=== PATIENT | male | born 1950 | race Caucasian/White ===

== ENCOUNTER 2022-09-11 05:15 | Inpatient (IN) | payer OTHER ==
[~2022-09-11] VITALS: Ht 180.3 cm; Wt 91.1 kg
[2022-09-11 06:21] LABS: Basophils # (auto) 0 10 ^3/uL (0-0.2); Basophils % (auto) 0.1 % (0.0-2.0); Eosinophils # (auto) 0 10 ^3/uL (0-0.8); Hematocrit 41.3 % (41.0-53.0); Hemoglobin 13.9 g/dL (13.5-17.5); Lymphocytes # (auto) 0.5 10 ^3/uL (0.4-5.4); Lymphocytes % (auto) 2.5 % (10.0-50.0); Mean Corpuscular Hemoglobin 30.9 pg (28.0-32.0); Mean Corpuscular Hgb Conc. 33.6 g/dL (32.0-36.0); Mean Corpuscular Volume 91.9 fL (80.0-100.0); Monocytes # (auto) 1.2 10 ^3/uL (0-1.3); Monocytes % (auto) 6.3 % (0.0-12.0); Neutrophils % (auto) 91.1 % (37.0-80.0); Nucleated Red Blood Cells % 0.1 %; Red Cell Distribution Width 14.4 % (11.8-14.3); White Blood Cell 18.7 10^3/uL (4.4-10.8)
[2022-09-11 06:33] LABS: INR 1.14 (0.9-1.15); Partial Thromboplastin Time 31.8 sec (24.6-33.4)
[2022-09-11 06:38] LABS: Albumin 3.2 g/dL (3.4-5.0); Anion Gap 7 (5-15); Blood Urea Nitrogen 25 mg/dL (7-18); Carbon Dioxide 24 mmol/L (21-32); Chloride 104 mmol/L (98-107); Glucose 190 mg/dL (74-106); Potassium 3.9 mmol/L (3.5-5.1); Sodium 135 mmol/L (136-145)
[2022-09-11 06:47] LABS: Alanine Aminotransferase 57 U/L (16-61); Alkaline Phosphatase 98 U/L (45-117); Aspartate Aminotransferase 171 U/L (15-37); BUN/Creatinine Ratio 20.8; Bilirubin, Total 1.2 mg/dL (0.2-1.0); GFR African American 77 mL/min; GFR Non-African American 63 mL/min; Total Protein 6.2 g/dL (6.4-8.2)
[2022-09-11 07:09] LABS: CRP High Sensitivity > 19 mg/dL (< 0.3)
[2022-09-11] MEDS ORDERED: VANCOMYCIN 1GM/250ML 250 ML IV ONE (07:30)
[2022-09-11] MEDS ORDERED: ACETAMINOPHEN 325 MG TAB PO PRN (09:45)
[2022-09-11] MEDS ORDERED: DEXTROSE (50%) 50ML SYRG IV PRN (09:45)
[2022-09-11] MEDS ORDERED: VANCOMYCIN PER PHARMACY 0 MG IV SCH (09:45)
[2022-09-11] MEDS ORDERED: MORPHINE SULFATE INJ 2 MG/ml SYRG IV PRN ×2 (09:45)
[2022-09-11] MEDS ORDERED: NITROGLYCERIN 0.4 MG SL TAB SL PRN (09:45)
[2022-09-11] MEDS: METOPROLOL SUCCINATE XL 50 MG TAB PO SCH (10:00)
[2022-09-11] MEDS: MAGNESIUM SULFATE 1GM/100ML 100 ML IV SCH ×2 (10:20→11:25)
[2022-09-11] MEDS: SODIUM CHLORIDE 0.9% 1,000 ML IV SCH ×2 (10:20→19:45)
[2022-09-11] MEDS: ENOXAPARIN SOD 40 MG/0.4 ML SYRINGE SC SCH (10:20)
[2022-09-11] MEDS: PIPERACILLIN-TAZOB 3.375GM 100 ML IV SCH ×2 (11:26→16:21)
[2022-09-11] MEDS: ACCU-CHEK COMFORT CURVE STRIP VI SCH ×3 (11:33→23:21)
[2022-09-11] MEDS: InsuLIN REG 1unit/0.01ml Soln (100units/ml) SC SCH ×3 (11:36→23:29)
[2022-09-11] MEDS: VANCOMYCIN 1GM/250ML 250 ML IV SCH (23:33)
[2022-09-12] MEDS: VANCOMYCIN 1GM/250ML 250 ML IV SCH ×2 (00:20→10:10)
[2022-09-12] MEDS: PIPERACILLIN-TAZOB 3.375GM 100 ML IV SCH ×5 (02:08→21:16)
[2022-09-12 04:56] VITALS: BP 105/56
[2022-09-12 05:00] VITALS: BP 105/56
[2022-09-12] MEDS ORDERED: HYDR-4902 PO (05:17)
[2022-09-12 06:11] LABS: Basophils # (auto) 0 10 ^3/uL (0-0.2); Basophils % (auto) 0.2 % (0.0-2.0); Eosinophils # (auto) 0.1 10 ^3/uL (0-0.8); Eosinophils % (auto) 0.6 % (0.0-7.0); Hematocrit 39.2 % (41.0-53.0); Hemoglobin 13.4 g/dL (13.5-17.5); Lymphocytes # (auto) 0.6 10 ^3/uL (0.4-5.4); Lymphocytes % (auto) 5.3 % (10.0-50.0); Mean Corpuscular Hemoglobin 30.9 pg (28.0-32.0); Mean Corpuscular Hgb Conc. 34.3 g/dL (32.0-36.0); Mean Corpuscular Volume 90.1 fL (80.0-100.0); Monocytes # (auto) 1.1 10 ^3/uL (0-1.3); Monocytes % (auto) 9.8 % (0.0-12.0); Neutrophils # (auto) 9.6 10 ^3/uL (1.6-8.6); Neutrophils % (auto) 84.1 % (37.0-80.0); Red Blood Cells 4.35 10^6/uL (4.5-5.90); Red Cell Distribution Width 13.9 % (11.8-14.3); White Blood Cell 11.4 10^3/uL (4.4-10.8)
[2022-09-12] MEDS: ACCU-CHEK COMFORT CURVE STRIP VI SCH ×4 (06:16→21:16)
[2022-09-12] MEDS: InsuLIN REG 1unit/0.01ml Soln (100units/ml) SC SCH ×4 (06:16→21:17)
[2022-09-12] MEDS: SODIUM CHLORIDE 0.9% 1,000 ML IV SCH ×2 (06:16→15:45)
[2022-09-12 09:02] LABS: Albumin 2.5 g/dL (3.4-5.0); Calcium 7.4 mg/dL (8.5-10.1)
[2022-09-12 09:06] LABS: BUN/Creatinine Ratio 15.4; Bilirubin, Total 0.7 mg/dL (0.2-1.0); Total Protein 6.2 g/dL (6.4-8.2)
[2022-09-12] MEDS: ENOXAPARIN SOD 40 MG/0.4 ML SYRINGE SC SCH (10:09)
[2022-09-12] MEDS: METOPROLOL SUCCINATE XL 50 MG TAB PO SCH (10:10)
[2022-09-12 13:00] VITALS: BP 123/70
[2022-09-12 17:00] VITALS: BP 111/60
[2022-09-12 22:00] VITALS: BP 108/65
[2022-09-13] MEDS: HYDROcodone-ACET 5/325MG TAB PO PRN (02:20)
[2022-09-13] MEDS: SODIUM CHLORIDE 0.9% 1,000 ML IV SCH ×3 (02:31→21:45)
[2022-09-13] MEDS: PIPERACILLIN-TAZOB 3.375GM 100 ML IV SCH ×4 (04:20→23:12)
[2022-09-13 05:00] VITALS: BP 133/54
[2022-09-13] MEDS: ACCU-CHEK COMFORT CURVE STRIP VI SCH ×4 (06:17→21:53)
[2022-09-13] MEDS: InsuLIN REG 1unit/0.01ml Soln (100units/ml) SC SCH ×4 (06:18→21:57)
[2022-09-13] MEDS: VANCOMYCIN 1GM/250ML 250 ML IV SCH ×2 (08:23→22:00)
[2022-09-13] MEDS: METOPROLOL SUCCINATE XL 50 MG TAB PO SCH (08:25)
[2022-09-13] MEDS: ENOXAPARIN SOD 40 MG/0.4 ML SYRINGE SC SCH (08:26)
[2022-09-13 09:00] VITALS: BP 145/68
[2022-09-13 13:00] VITALS: BP 149/63
[2022-09-13 17:00] VITALS: BP 135/68
[2022-09-13 17:25] LABS: Urine Bacteria NONE SEEN /hpf (None Seen); Urine Blood 1+ /uL (Negative); Urine Specific Gravity 1.016 (1.001-1.035); Urine WBC 2 /hpf (0 - 3)
[2022-09-13 22:00] VITALS: BP 135/63
[2022-09-14] MEDS: PIPERACILLIN-TAZOB 3.375GM 100 ML IV SCH ×4 (04:33→22:47)
[2022-09-14 05:00] VITALS: BP 110/59
[2022-09-14] MEDS: ACCU-CHEK COMFORT CURVE STRIP VI SCH ×4 (06:05→22:00)
[2022-09-14] MEDS: InsuLIN REG 1unit/0.01ml Soln (100units/ml) SC SCH ×4 (06:06→22:41)
[2022-09-14] MEDS: ENOXAPARIN SOD 40 MG/0.4 ML SYRINGE SC SCH (08:39)
[2022-09-14] MEDS: METOPROLOL SUCCINATE XL 50 MG TAB PO SCH (08:42)
[2022-09-14] MEDS: SODIUM CHLORIDE 0.9% 1,000 ML IV SCH ×2 (08:44→18:11)
[2022-09-14] MEDS: VANCOMYCIN 1GM/250ML 250 ML IV SCH ×2 (08:44→21:06)
[2022-09-14 09:00] VITALS: BP 123/76
[2022-09-14 13:00] VITALS: BP 119/66
[2022-09-14 17:00] VITALS: BP 106/75
[2022-09-14] MEDS: FAMOTIDINE 20 MG TAB PO SCH (21:06)
[2022-09-14 22:00] VITALS: BP 145/73
[2022-09-15] MEDS: SODIUM CHLORIDE 0.9% 1,000 ML IV SCH ×2 (03:45→17:29)
[2022-09-15 05:00] VITALS: BP 137/62
[2022-09-15] MEDS: PIPERACILLIN-TAZOB 3.375GM 100 ML IV SCH ×4 (05:07→22:41)
[2022-09-15] MEDS: ACCU-CHEK COMFORT CURVE STRIP VI SCH ×4 (06:13→22:00)
[2022-09-15] MEDS: InsuLIN REG 1unit/0.01ml Soln (100units/ml) SC SCH ×4 (06:14→23:04)
[2022-09-15 09:00] VITALS: BP 103/64
[2022-09-15 09:06] LABS: Basophils # (auto) 0.2 10 ^3/uL (0-0.2); Basophils % (auto) 2.2 % (0.0-2.0); Eosinophils # (auto) 0.3 10 ^3/uL (0-0.8); Eosinophils % (auto) 3.7 % (0.0-7.0); Hematocrit 39.8 % (41.0-53.0); Hemoglobin 13.6 g/dL (13.5-17.5); Lymphocytes % (auto) 12.6 % (10.0-50.0); Mean Corpuscular Hemoglobin 30.7 pg (28.0-32.0); Mean Corpuscular Hgb Conc. 34.3 g/dL (32.0-36.0); Mean Corpuscular Volume 89.7 fL (80.0-100.0); Monocytes # (auto) 0.5 10 ^3/uL (0-1.3); Monocytes % (auto) 6.5 % (0.0-12.0); Neutrophils # (auto) 5.9 10 ^3/uL (1.6-8.6); Red Blood Cells 4.44 10^6/uL (4.5-5.90); Red Cell Distribution Width 14.3 % (11.8-14.3); White Blood Cell 7.8 10^3/uL (4.4-10.8)
[2022-09-15 09:22] LABS: Albumin 2.5 g/dL (3.4-5.0); Calcium 7.5 mg/dL (8.5-10.1); Potassium 3.3 mmol/L (3.5-5.1)
[2022-09-15 09:25] LABS: Bilirubin, Total 0.8 mg/dL (0.2-1.0); Total Protein 5.8 g/dL (6.4-8.2)
[2022-09-15] MEDS ORDERED: POTASSIUM CHL 20 Meq TABLET PO ONE (10:15)
[2022-09-15] MEDS: FAMOTIDINE 20 MG TAB PO SCH ×2 (10:22→22:41)
[2022-09-15] MEDS: METOPROLOL SUCCINATE XL 50 MG TAB PO SCH (10:24)
[2022-09-15] MEDS: ENOXAPARIN SOD 40 MG/0.4 ML SYRINGE SC SCH (10:25)
[2022-09-15] MEDS: VANCOMYCIN 1GM/250ML 250 ML IV SCH ×2 (11:50→20:51)
[2022-09-15 13:00] VITALS: BP 115/61
[2022-09-15 17:00] VITALS: BP 140/59
[2022-09-15 22:00] VITALS: BP 115/60
[2022-09-16 03:51] LABS: BUN/Creatinine Ratio 12.8; Calcium 8.2 mg/dL (8.5-10.1); Magnesium 1.9 mg/dL (1.6-2.6); Potassium 3.4 mmol/L (3.5-5.1)
[2022-09-16] MEDS: PIPERACILLIN-TAZOB 3.375GM 100 ML IV SCH ×4 (04:34→22:25)
[2022-09-16] MEDS: SODIUM CHLORIDE 0.9% 1,000 ML IV SCH ×3 (04:35→19:45)
[2022-09-16 05:00] VITALS: BP 136/73
[2022-09-16 05:27] LABS: Basophils # (auto) 0 10 ^3/uL (0-0.2); Basophils % (auto) 0.4 % (0.0-2.0); Eosinophils # (auto) 0.4 10 ^3/uL (0-0.8); Eosinophils % (auto) 3.7 % (0.0-7.0); Hematocrit 39.6 % (41.0-53.0); Hemoglobin 13.6 g/dL (13.5-17.5); Lymphocytes # (auto) 1.4 10 ^3/uL (0.4-5.4); Lymphocytes % (auto) 13.6 % (10.0-50.0); Mean Corpuscular Hemoglobin 30.7 pg (28.0-32.0); Mean Corpuscular Hgb Conc. 34.2 g/dL (32.0-36.0); Mean Corpuscular Volume 89.6 fL (80.0-100.0); Monocytes # (auto) 0.8 10 ^3/uL (0-1.3); Monocytes % (auto) 8.3 % (0.0-12.0); Neutrophils # (auto) 7.5 10 ^3/uL (1.6-8.6); Nucleated Red Blood Cells % 0.1 %; Red Blood Cells 4.42 10^6/uL (4.5-5.90); White Blood Cell 10.1 10^3/uL (4.4-10.8)
[2022-09-16 05:57] LABS: Albumin 2.7 g/dL (3.4-5.0); Potassium 3.7 mmol/L (3.5-5.1)
[2022-09-16 05:59] LABS: BUN/Creatinine Ratio 12.5; Phosphorus 2.4 mg/dL (2.5-4.90)
[2022-09-16] MEDS: ACCU-CHEK COMFORT CURVE STRIP VI SCH ×4 (06:55→22:24)
[2022-09-16] MEDS: InsuLIN REG 1unit/0.01ml Soln (100units/ml) SC SCH ×4 (06:57→22:27)
[2022-09-16 09:00] VITALS: BP 148/72
[2022-09-16] MEDS: VANCOMYCIN 1GM/250ML 250 ML IV SCH ×2 (09:10→20:57)
[2022-09-16] MEDS: FAMOTIDINE 20 MG TAB PO SCH ×2 (09:10→21:15)
[2022-09-16] MEDS: ENOXAPARIN SOD 40 MG/0.4 ML SYRINGE SC SCH (09:10)
[2022-09-16] MEDS: METOPROLOL SUCCINATE XL 50 MG TAB PO SCH (09:11)
[2022-09-16 13:00] VITALS: BP 128/75
[2022-09-16 17:00] VITALS: BP 132/62
[2022-09-16] MEDS: HYDROcodone-ACET 5/325MG TAB PO PRN (21:15)
[2022-09-16 22:00] VITALS: BP 123/63
[2022-09-17] MEDS: PIPERACILLIN-TAZOB 3.375GM 100 ML IV SCH ×4 (04:29→22:57)
[2022-09-17 05:00] VITALS: BP 138/76
[2022-09-17] MEDS: SODIUM CHLORIDE 0.9% 1,000 ML IV SCH ×2 (05:45→15:25)
[2022-09-17] MEDS: ACCU-CHEK COMFORT CURVE STRIP VI SCH ×4 (06:35→21:45)
[2022-09-17] MEDS: InsuLIN REG 1unit/0.01ml Soln (100units/ml) SC SCH ×4 (06:36→21:49)
[2022-09-17] MEDS: METOPROLOL SUCCINATE XL 50 MG TAB PO SCH (08:16)
[2022-09-17] MEDS: ENOXAPARIN SOD 40 MG/0.4 ML SYRINGE SC SCH (08:16)
[2022-09-17] MEDS: FAMOTIDINE 20 MG TAB PO SCH ×2 (08:16→21:45)
[2022-09-17] MEDS: HYDROcodone-ACET 5/325MG TAB PO PRN (08:20)
[2022-09-17 08:36] VITALS: BP 141/70
[2022-09-17] MEDS: VANCOMYCIN 1GM/250ML 250 ML IV SCH ×2 (09:00→11:56)
[2022-09-17 13:00] VITALS: BP 120/81
[2022-09-17 17:00] VITALS: BP 123/67
[2022-09-17 20:00] VITALS: BP 116/61
[2022-09-17 22:00] VITALS: BP 116/61
[2022-09-18] MEDS: SODIUM CHLORIDE 0.9% 1,000 ML IV SCH ×3 (01:45→21:58)
[2022-09-18] MEDS: VANCOMYCIN 1GM/250ML 250 ML IV SCH ×2 (02:38→14:08)
[2022-09-18] MEDS: PIPERACILLIN-TAZOB 3.375GM 100 ML IV SCH ×4 (04:25→21:53)
[2022-09-18] MEDS: ACCU-CHEK COMFORT CURVE STRIP VI SCH ×4 (05:48→21:58)
[2022-09-18] MEDS: InsuLIN REG 1unit/0.01ml Soln (100units/ml) SC SCH ×4 (05:59→22:05)
[2022-09-18] MEDS: FAMOTIDINE 20 MG TAB PO SCH (09:31)
[2022-09-18] MEDS: METOPROLOL SUCCINATE XL 50 MG TAB PO SCH (09:31)
[2022-09-18] MEDS: HYDROcodone-ACET 5/325MG TAB PO PRN (09:32)
[2022-09-18] MEDS: ENOXAPARIN SOD 40 MG/0.4 ML SYRINGE SC SCH (09:32)
[2022-09-18 20:00] VITALS: BP 130/44
[2022-09-19] VITALS (8 sets, daily range): BP systolic 127–164; BP diastolic 49–86
[2022-09-19] MEDS: PIPERACILLIN-TAZOB 3.375GM 100 ML IV SCH ×4 (03:56→21:28)
[2022-09-19 05:41] LABS: Basophils # (auto) 0.1 10 ^3/uL (0-0.2); Basophils % (auto) 0.8 % (0.0-2.0); Eosinophils # (auto) 0.3 10 ^3/uL (0-0.8); Eosinophils % (auto) 3.6 % (0.0-7.0); Hematocrit 38.9 % (41.0-53.0); Hemoglobin 13.2 g/dL (13.5-17.5); Lymphocytes # (auto) 1.6 10 ^3/uL (0.4-5.4); Lymphocytes % (auto) 19.1 % (10.0-50.0); Mean Corpuscular Hemoglobin 30.4 pg (28.0-32.0); Mean Corpuscular Hgb Conc. 33.9 g/dL (32.0-36.0); Mean Corpuscular Volume 89.8 fL (80.0-100.0); Monocytes # (auto) 0.7 10 ^3/uL (0-1.3); Monocytes % (auto) 8.2 % (0.0-12.0); Neutrophils # (auto) 5.8 10 ^3/uL (1.6-8.6); Neutrophils % (auto) 68.3 % (37.0-80.0); Nucleated Red Blood Cells % 0.1 %; Red Blood Cells 4.34 10^6/uL (4.5-5.90); White Blood Cell 8.4 10^3/uL (4.4-10.8)
[2022-09-19 05:50] LABS: INR 0.99 (0.9-1.15)
[2022-09-19 05:59] LABS: BUN/Creatinine Ratio 13.9
[2022-09-19] MEDS: ACCU-CHEK COMFORT CURVE STRIP VI SCH ×4 (05:59→21:32)
[2022-09-19] MEDS: InsuLIN REG 1unit/0.01ml Soln (100units/ml) SC SCH ×4 (06:02→21:34)
[2022-09-19 06:09] LABS: Calcium 8.5 mg/dL (8.5-10.1)
[2022-09-19] MEDS: VANCOMYCIN 1GM/250ML 250 ML IV SCH ×2 (07:06→20:00)
[2022-09-19 07:23] LABS: Urine Bacteria NONE SEEN /hpf (None Seen); Urine Blood Negative /uL (Negative); Urine Specific Gravity 1.014 (1.001-1.035); Urine WBC <1 /hpf (0 - 3)
[2022-09-19] MEDS: SODIUM CHLORIDE 0.9% 1,000 ML IV SCH ×2 (07:45→17:15)
[2022-09-19] MEDS: ENOXAPARIN SOD 40 MG/0.4 ML SYRINGE SC SCH (09:34)
[2022-09-19] MEDS: METOPROLOL SUCCINATE XL 50 MG TAB PO SCH (09:35)
[2022-09-19] MEDS ORDERED: ANGIOMAX 250 MG VIAL IV ONE ×2 (14:11→14:55)
[2022-09-19] MEDS ORDERED: fentaNYL CITRATE 100 MCG/2 ML VL ONE (14:12)
[2022-09-19] MEDS ORDERED: MIDAZOLAM HCL 2MG/2ML 2ml VIAL (1mg/ml) ONE ×2 (14:12→15:41)
[2022-09-19] MEDS ORDERED: SODIUM CHL 0.9% 50 ML ONE ×2 (14:12→14:56)
[2022-09-19] MEDS ORDERED: LIDOCAINE 2%HCL (LOCAL ANESTH.) INJ 10ml MDV ONE (14:13)
[2022-09-19] MEDS ORDERED: IOHEXOL 350 MG/ML 100ML IJ ONE (15:06)
[2022-09-19] MEDS ORDERED: HYDROmorphone HCL 2 MG/ML VL/or syr ONE (15:15)
[2022-09-19] MEDS ORDERED: ASPirin 325 MG TAB ONE (16:25)
[2022-09-19] MEDS ORDERED: CLOPIDOGREL 300 MG TAB ONE (16:25)
[2022-09-19] MEDS: RIVAROXABAN 10 MG TAB PO SCH (21:29)
[2022-09-20] MEDS: SODIUM CHLORIDE 0.9% 1,000 ML IV SCH ×3 (03:45→23:45)
[2022-09-20] MEDS: PIPERACILLIN-TAZOB 3.375GM 100 ML IV SCH ×4 (04:02→21:38)
[2022-09-20] MEDS: ACCU-CHEK COMFORT CURVE STRIP VI SCH ×4 (06:25→21:27)
[2022-09-20] MEDS: InsuLIN REG 1unit/0.01ml Soln (100units/ml) SC SCH ×4 (06:31→21:29)
[2022-09-20 06:33] LABS: Calcium 7.7 mg/dL (8.5-10.1); Potassium 4.1 mmol/L (3.5-5.1)
[2022-09-20 06:35] LABS: BUN/Creatinine Ratio 16.5
[2022-09-20 08:00] VITALS: BP 150/70
[2022-09-20 09:00] VITALS: BP 150/70
[2022-09-20] MEDS: HYDROcodone-ACET 5/325MG TAB PO PRN (10:04)
[2022-09-20] MEDS: RIVAROXABAN 10 MG TAB PO SCH ×2 (10:04→21:38)
[2022-09-20] MEDS: METOPROLOL SUCCINATE XL 50 MG TAB PO SCH (10:06)
[2022-09-20] MEDS: VANCOMYCIN 1GM/250ML 250 ML IV SCH (10:06)
[2022-09-20 13:00] VITALS: BP 137/64
[2022-09-20 16:59] VITALS: BP 126/68
[2022-09-20 20:00] VITALS: BP 122/65
[2022-09-20 22:00] VITALS: BP 122/65
[2022-09-20] MEDS ORDERED: ATORVASTATIN 20 MG TAB PO SCH (22:00)
[2022-09-21] MEDS: VANCOMYCIN 1GM/250ML 250 ML IV SCH ×2 (00:26→14:00)
[2022-09-21 05:00] VITALS: BP 123/70
[2022-09-21] MEDS: PIPERACILLIN-TAZOB 3.375GM 100 ML IV SCH ×2 (05:37→09:49)
[2022-09-21] MEDS: ACCU-CHEK COMFORT CURVE STRIP VI SCH ×2 (06:45→11:36)
[2022-09-21] MEDS: InsuLIN REG 1unit/0.01ml Soln (100units/ml) SC SCH ×2 (06:45→11:44)
[2022-09-21] MEDS ORDERED: CLIN300C8 PO (09:27)
[2022-09-21] MEDS ORDERED: ATO40T PO (09:27)
[2022-09-21] MEDS ORDERED: METO25TA36 PO (09:27)
[2022-09-21] MEDS ORDERED: RIVA10TA PO (09:27)
[2022-09-21] MEDS ORDERED: CEPH-322 PO (09:27)
[2022-09-21] MEDS ORDERED: HYDR-4902 PO (09:27)
[2022-09-21] MEDS: SODIUM CHLORIDE 0.9% 1,000 ML IV SCH (09:45)
[2022-09-21 09:48] VITALS: BP 130/58
[2022-09-21] MEDS: RIVAROXABAN 10 MG TAB PO SCH (09:50)
[2022-09-21] MEDS: METOPROLOL SUCCINATE XL 50 MG TAB PO SCH (09:51)
[2022-09-21 13:18] VITALS: BP 125/69
[2022-09-21 17:21] VITALS: BP 116/57
== END 2022-09-21 18:00 | disposition home or self-care (01) | DRG 853 ==
LOC: EDBD 05:15 → ER 05:15 → TELE 09:48 → TELE-EAST 09-12 04:18
PROVIDERS: ADMIT Registered Nurse; ATTEND Family Medicine
PROC: 047T3ZZ Dilation of Right Peroneal Artery, Percutaneous Approach (ICD-10-PCS; principal; 2022-09-19)
PROC: 04CT3ZZ Extirpation of Matter from Right Peroneal Artery, Percutaneous Approach (ICD-10-PCS; 2022-09-19)
PROC: 047R3ZZ Dilation of Right Posterior Tibial Artery, Percutaneous Approach (ICD-10-PCS; 2022-09-19)
PROC: B41GYZZ Fluoroscopy of Left Lower Extremity Arteries using Other Contrast (ICD-10-PCS; 2022-09-19)
PROC: B41FYZZ Fluoroscopy of Right Lower Extremity Arteries using Other Contrast (ICD-10-PCS; 2022-09-19)
DX: A41.9 Sepsis, unspecified organism (principal); G93.41 Metabolic encephalopathy; E46 Unspecified protein-calorie malnutrition; L03.115 Cellulitis of right lower limb; E66.9 Obesity, unspecified; I10 Essential (primary) hypertension; I49.3 Ventricular premature depolarization; E11.51 Type 2 diabetes mellitus with diabetic peripheral angiopathy without gangrene; K76.0 Fatty (change of) liver, not elsewhere classified; R55 Syncope and collapse; Z20.822 Contact with and (suspected) exposure to COVID-19; Z60.2 Problems related to living alone; Z68.32 Body mass index [BMI] 32.0-32.9, adult; Z89.421 Acquired absence of other right toe(s)
CPT/HCPCS: 36415; 37229; 70450; 71045; 71250; 72125; 74176; 75710; 80048; 80053; 80061; 80069; 80202; 81001; 82962; 83036; 83605; 83735; 84443; 84484; 85025; 85610; 85652; 85730; 86141; 87040; 87426; 93005; 93306; 93886; 93926; 93971; 95819; 99152; 99153; C1725; G0378; J1815; J2001; J2250; J2543

== ENCOUNTER 2022-10-25 12:40 | Inpatient (IN) | payer OTHER ==
[~2022-10-25] VITALS: Ht 177.8 cm; Wt 115.0 kg
[~2022-10-25 12:40] MED LIST: ATO40T PO; CEPH-322 PO; CLIN300C8 PO; HYDR-4902 PO; METO25TA36 PO; RIVA10TA PO
[2022-10-25] MEDS ORDERED: MORPHINE SULFATE 4 MG/ML SYR/VIAL IV ONE (13:15)
[2022-10-25] MEDS ORDERED: SODIUM CHLORIDE 0.9% 500 ML IV ONE (13:15)
[2022-10-25] MEDS ORDERED: ONDANSETRON HCL 4 MG/2 ML VIAL IV ONE (13:15)
[2022-10-25 13:47] LABS: Basophils # (auto) 0.1 10 ^3/uL (0-0.2); Eosinophils # (auto) 0.1 10 ^3/uL (0-0.8); Eosinophils % (auto) 0.4 % (0.0-7.0); Hemoglobin 13.4 g/dL (13.5-17.5); Mean Corpuscular Hgb Conc. 33.8 g/dL (32.0-36.0)
[2022-10-25 13:48] LABS: Basophils % (auto) 0.5 % (0.0-2.0); Hematocrit 39.7 % (41.0-53.0); Lymphocytes # (auto) 0.8 10 ^3/uL (0.4-5.4); Lymphocytes % (auto) 4.7 % (10.0-50.0); Mean Corpuscular Hemoglobin 29.7 pg (28.0-32.0); Mean Corpuscular Volume 88.1 fL (80.0-100.0); Monocytes # (auto) 1.2 10 ^3/uL (0-1.3); Monocytes % (auto) 6.9 % (0.0-12.0); Neutrophils # (auto) 14.7 10 ^3/uL (1.6-8.6); Neutrophils % (auto) 87.5 % (37.0-80.0); Red Blood Cells 4.51 10^6/uL (4.5-5.90); Red Cell Distribution Width 14.4 % (11.8-14.3); White Blood Cell 16.8 10^3/uL (4.4-10.8)
[2022-10-25 14:04] LABS: Albumin 2.8 g/dL (3.4-5.0); Calcium 8.8 mg/dL (8.5-10.1); Potassium 3.6 mmol/L (3.5-5.1)
[2022-10-25 14:06] LABS: BUN/Creatinine Ratio 8.9 (10.0-20.0)
[2022-10-25 14:09] LABS: Bilirubin, Total 1.4 mg/dL (0.2-1.0); Total Protein 7.7 g/dL (6.4-8.2)
[2022-10-25 14:11] LABS: INR 1.19 (0.9-1.15); Partial Thromboplastin Time 32.4 sec (24.6-33.4)
[2022-10-25] MEDS ORDERED: CLINDAMYCIN 600MG IV 50 ML IV ONE (14:30)
[2022-10-25] MEDS: CLINDAMYCIN 300MG IV 50 ML IV SCH ×2 (14:56→17:48)
[2022-10-25] MEDS ORDERED: HYDROcodone-ACET 5/325MG TAB PO PRN (15:00)
[2022-10-25] MEDS ORDERED: DOCUSATE SOD 100 MG CAP PO PRN (15:00)
[2022-10-25] MEDS ORDERED: ACETAMINOPHEN 325 MG TAB PO PRN (15:00)
[2022-10-25] MEDS ORDERED: DEXTROSE (50%) 50ML SYRG IV PRN (15:00)
[2022-10-25] MEDS ORDERED: NITROGLYCERIN 0.4 MG SL TAB SL PRN (15:00)
[2022-10-25] MEDS ORDERED: TEMAZEPAM 15 MG CAP PO PRN (15:00)
[2022-10-25] MEDS ORDERED: VANCOMYCIN PER PHARMACY 0 MG IV SCH (15:00)
[2022-10-25] MEDS ORDERED: MORPHINE SULFATE INJ 2 MG/ml SYRG IV PRN ×2 (15:00)
[2022-10-25] MEDS ORDERED: ONDANSETRON HCL 4 MG/2 ML VIAL IV PRN (15:00)
[2022-10-25] MEDS: ACCU-CHEK COMFORT CURVE STRIP VI SCH ×2 (17:10→22:21)
[2022-10-25] MEDS: InsuLIN REG 1unit/0.01ml Soln (100units/ml) SC SCH (17:10)
[2022-10-25] MEDS ORDERED: VANCOMYCIN 1GM/250ML 250 ML IV ONE (17:15)
[2022-10-25] MEDS ORDERED: VANCOMYCIN 1GM/250ML 250 ML IV SCH ×2 (19:00→22:30)
[2022-10-25] MEDS ORDERED: InsuLIN REG 1unit/0.01ml Soln (100units/ml) SC SCH (22:00)
[2022-10-26 05:07] LABS: Basophils # (auto) 0.1 10 ^3/uL (0-0.2); Basophils % (auto) 0.4 % (0.0-2.0); Eosinophils # (auto) 0.2 10 ^3/uL (0-0.8); Eosinophils % (auto) 1.6 % (0.0-7.0); Hematocrit 34.9 % (41.0-53.0); Hemoglobin 11.8 g/dL (13.5-17.5); Lymphocytes # (auto) 0.9 10 ^3/uL (0.4-5.4); Lymphocytes % (auto) 6.3 % (10.0-50.0); Mean Corpuscular Hemoglobin 29.9 pg (28.0-32.0); Mean Corpuscular Hgb Conc. 33.9 g/dL (32.0-36.0); Mean Corpuscular Volume 88.3 fL (80.0-100.0); Monocytes # (auto) 1.1 10 ^3/uL (0-1.3); Neutrophils # (auto) 11.7 10 ^3/uL (1.6-8.6); Neutrophils % (auto) 83.7 % (37.0-80.0); Red Blood Cells 3.95 10^6/uL (4.5-5.90); Red Cell Distribution Width 14.2 % (11.8-14.3)
[2022-10-26 05:21] LABS: Albumin 2.1 g/dL (3.4-5.0); Calcium 8.4 mg/dL (8.5-10.1); Potassium 3.5 mmol/L (3.5-5.1)
[2022-10-26 05:23] LABS: BUN/Creatinine Ratio 9.8 (10.0-20.0)
[2022-10-26 05:47] LABS: Total Protein 7.4 g/dL (6.4-8.2)
[2022-10-26] MEDS: ACCU-CHEK COMFORT CURVE STRIP VI SCH (07:17)
[2022-10-26] MEDS: InsuLIN REG 1unit/0.01ml Soln (100units/ml) SC SCH (07:18)
[2022-10-26 08:00] VITALS: BP 115/38
[2022-10-26] MEDS ORDERED: ENOXAPARIN SOD 40 MG/0.4 ML SYRINGE SC SCH (10:00)
== END 2022-10-26 10:00 | disposition left against medical advice (07) | DRG 638 ==
LOC: ER 12:40 → TELE 14:56
PROVIDERS: ADMIT Nurse Practitioner; ATTEND Nurse Practitioner
DX: E11.69 Type 2 diabetes mellitus with other specified complication (principal); M86.072 Acute hematogenous osteomyelitis, left ankle and foot; E11.65 Type 2 diabetes mellitus with hyperglycemia; I10 Essential (primary) hypertension; Z20.822 Contact with and (suspected) exposure to COVID-19; E66.01 Morbid (severe) obesity due to excess calories; E78.5 Hyperlipidemia, unspecified; E11.621 Type 2 diabetes mellitus with foot ulcer; Z53.29 Procedure and treatment not carried out because of patient's decision for other reasons; Z68.36 Body mass index [BMI] 36.0-36.9, adult; Z79.4 Long term (current) use of insulin
CPT/HCPCS: 36415; 73700; 80053; 82962; 85025; 85610; 85652; 85730; 87077; 87186; 87205; 87426; 93005; 96361; 96374; 96375; G0378; J1815; J2405; J3490